=== PATIENT | female | born 1945 | race Caucasian/White ===

== ENCOUNTER → 2018-04-15 06:41 | Outpatient (CLI) | payer MEDICARE, SELFPAY ==
--- NOTE | 2018-04-15 06:50 | DI.CT.S_ITS ---
PROCEDURE: CT HEAD/BRAIN WO CON INDICATIONS: MEMORY LOSS TECHNIQUE: Noncontrast 4.5 mm thick angled axial sections acquired from the foramen magnum to the vertex, with coronal and sagittal reformats. For radiation dose reduction, the following was used: automated exposure control, adjustment of mA and/or kV according to patient size. COMPARISON: [facility], CT, HEAD WITHOUT CONTRAST, 03/13/2011, 9:59. FINDINGS: Image quality: Excellent. CSF spaces: Basal cisterns are patent. No extra-axial fluid collections. The ventricles are symmetric in size and shape. Brain: No intracranial bleeds. 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 There is cerebral volume loss for age, with resultant ventricular and sulcal prominence. There are periventricular and deep white matter chronic small vessel ischemic changes. There is intracranial internal carotid artery atherosclerosis. Skull and face: Calvarium and visualized facial bones appear intact, without suspicious lesions. Sinuses: Visualized sinuses and mastoids are clear. IMPRESSION: No acute intracranial abnormality. 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 Dictated by: Yisel Sin M.D. on 04/15/2018 at 8:44 Approved by: Yisel Sin M.D. on 04/15/2018 at 8:46
[2018-04-15 09:39] LABS: Hematocrit 41.6 % (36-46); Mean Corpuscular HGB Conc 33.6 % (30-36); Mean Corpuscular Hemoglobin 29.8 PG (26-34); Mean Corpuscular Volume 88.6 fL (80-100); Platelet Count 243 X10^3/uL (150-400); Red Cell Distribution Width 13.8 % (11.6-14.8); White Blood Cell Count 8.3 X10^3/uL (4.5-11.0)
[2018-04-15 09:55] LABS: Hemoglobin A1C% w Est Avg Glu 5.6 % (4.0-6.0)
[2018-04-15 10:29] LABS: Alanine Aminotransferase 24 IU/L (9-52); Albumin 4.3 g/dL (3.5-5.0); Albumin Globulin Ratio 1.3 (1.0-2.8); Alkaline Phosphatase 56 U/L (38-126); Aspartate Aminotransferase 28 IU/L (14-36); BUN Creatinine Ratio 23.8 (6-22); Bilirubin Total 0.6 mg/dL (0.2-1.3); Blood Urea Nitrogen 19 mg/dL (7-17); Calcium 9.9 mg/dL (8.4-10.2); Carbon Dioxide 29 mmol/L (22-32); Chloride 100 mmol/L (98-107); Cholesterol 218 mg/dL (140-199); Estimated Glomerular Filt Rate > 60.0 mL/min (>60); Globulin 3.4 g/dL (1.7-4.1); Glucose 84 mg/dL (80-110); HDL Cholesterol 69 mg/dL (40-60); HEMOLYSIS < 15 (0-50); LDL Cholesterol Calculated 132 mg/dL (<100); Potassium 5.3 mmol/L (3.4-5.1); Sodium 141 mmol/L (137-145); Total Protein 7.7 g/dL (6.3-8.2); Triglycerides 85 mg/dL (35-150)
[2018-04-15 10:45] LABS: Thyroid Stimulating Hormone 2.36 uIU/mL (0.47-4.68)
== END ==
DX: R41.3 Other amnesia (principal); Z13.220 Encounter for screening for lipoid disorders; Z13.29 Encounter for screening for other suspected endocrine disorder; Z13.228 Encounter for screening for other metabolic disorders; Z13.0 Encounter for screening for diseases of the blood and blood-forming organs and certain disorders involving the immune mechanism
CPT/HCPCS: 36415; 70450; 80053; 80061; 83036; 84443; 85027

== ENCOUNTER 2025-01-02 11:30 | Emergency (ER) | payer MEDICARE, SELFPAY ==
[2025-01-02] VITALS (7 sets, daily range): BP systolic 115–167; BP diastolic 59–75; PULSE 44–56; RESP 16–24; TEMP 36.7; O2SAT 94–99; BMI 27.1
--- NOTE | 2025-01-02 12:08 | DI.RAD.S_ITS ---
PROCEDURE: XR HAND LT MIN 3V INDICATIONS: hand pain TECHNIQUE: 3 views of the hand(s) acquired. COMPARISON: None. FINDINGS: Bones: No fractures or dislocations. Carpal bones are normally aligned. No suspicious bony lesions. Soft tissues: No suspicious soft tissue calcifications. IMPRESSION: No acute bony abnormality. Osteopenia and CMC arthritic changes Approved by: Sanford Roblero M.D. on 01/02/2025 at 12:26
[2025-01-02 12:35] LABS: Add Manual Diff / Slide Review NO; Basophils Absolute Auto 100 /uL (0-100); Basophils Percent Auto 0.8 % (0-2); Eosinophils Absolute Auto 200 /uL (0-450); Eosinophils Percent Auto 2.7 % (2-4); Hematocrit 41.7 % (36-46); Hemoglobin 13.8 g/dL (12.0-16.0); Lymphocytes Absolute Auto 1700 /uL (1100-4500); Lymphocytes Percent Auto 19.7 % (25-40); Mean Corpuscular HGB Conc 33.1 % (30-36); Mean Corpuscular Hemoglobin 30.6 PG (26-34); Mean Corpuscular Volume 92.4 fL (80-100); Monocytes Absolute Auto 800 /uL (0-900); Monocytes Percent Auto 9.2 % (3-14); Neutrophils Absolute Auto 6000 /uL (1500-7000); Neutrophils Percent Auto 67.6 % (50-75); Platelet Count 200 X10^3/uL (150-400); Red Blood Cell Count 4.51 X10^6/uL (4.0-5.2); Red Cell Distribution Width 13.8 % (11.6-14.8); White Blood Cell Count 8.8 X10^3/uL (4.5-11.0)
[2025-01-02 12:51] LABS: Alanine Aminotransferase 24 IU/L (<35); Albumin 4.5 g/dL (3.5-5.0); Albumin Globulin Ratio 1.4 (1.0-2.8); Alkaline Phosphatase 57 U/L (38-126); Aspartate Aminotransferase 40 IU/L (14-36); BUN Creatinine Ratio 17.9 (6-22); Bilirubin Total 0.5 mg/dL (0.2-1.3); Blood Urea Nitrogen 17 mg/dL (7-17); Calcium 9.5 mg/dL (8.4-10.2); Carbon Dioxide 23 mmol/L (22-32); Chloride 105 mmol/L (98-107); Estimated Glomerular Filt Rate > 60 mL/min (>60); Globulin 3.2 g/dL (1.7-4.1); Glucose 87 mg/dL (80-110); HEMOLYSIS 25 (0-50); Potassium 4.3 mmol/L (3.4-5.1); Sodium 139 mmol/L (137-145); Total Protein 7.7 g/dL (6.3-8.2)
--- NOTE | 2025-01-02 13:14 | ED_ITS ---
HPI - Extremity Problem General Chief complaint: Extremity Injury, Upper Stated complaint: left hand/arm injury Time Seen by Provider: 01/02/25 12:06 Source: patient Mode of arrival: Ambulatory History of Present Illness HPI Narrative: This is a 79-year-old woman with no pertinent past medical history complaining of left upper extremity problems. Reports that it started with swelling and pain on the flexor surface of her left small finger. She felt like she might have a splinter although she does not recall having had a splinter. Couple of days ago she opened the area up with a needle and got a small amount of pus out. She subsequently had increased swelling and pain in the finger and then redness running up her left arm. She was seen urgent care yesterday and started on Bactrim. She reports that the redness has progressed significantly since then she is taken 2 doses of Bactrim at this point. He has not had any fevers or chills. No immunosuppression. Does reported diagnosis of rheumatoid arthritis. Does not recall when her last tetanus booster was. Additionally, I see that she has cephalexin listed as an allergy but she reports she believes she may have had some nausea and dizziness when taking it. No history of severe reaction and not really consistent with a true allergy. Related Data Previous Rx's Medication Instructions Recorded cephalexin 500 mg capsule 500 mg PO QID 10 days #40 caps 01/02/25 Allergies Allergy/AdvReac Type Severity Reaction Status Date / Time INGREDIENT: NKA - NO KNOWN Allergy Unknown Uncoded 07/24/18 09:15 ALLERGIES Cephalexin AdvReac Unknown Uncoded 07/24/18 09:15 Meperidine AdvReac Unknown Uncoded 07/24/18 09:15 Prednisone AdvReac Unknown Uncoded 07/24/18 09:15 Patient History Medical History (Updated 01/02/25 @ 13:54 by Mike Fleming MD) APOE*3/*4 genotype Cognitive impairment Environmental allergies Gastroparesis Transient ischemic attack (~2011) Knee pain Scoliosis Osteopenia (~2015) Pelvis fracture (~1975) Foot pain (~2016) Arabic measles (~1968) Chicken pox (~1949) Tinnitus Hearing loss Surgical History (Updated 06/06/18 @ 21:47 by Lorraine Purdy) Anesthesia History of toe surgery (~1989) History of ankle surgery (~1989) History of esophagogastroduodenoscopy (EGD) History of colonoscopy History of cholecystectomy (~2010) History of tubal ligation (~1980) History of tonsillectomy and adenoidectomy (~1950) Family History (Updated 06/06/18 @ 21:53 by Lorraine Purdy) Father No problems noted. Mother Macular degeneration Impaired fasting glucose Hypertension Heart disease Brother Polio Diverticular disease Social History marital status: number of children: 4 household members: spouse lives independently: Yes caregiver/support person: No housing: house pets and animals: No education level: college occupational status: unemployed and other sheila/zoroastrian: [employer] travel history: over 6 months ago ([place], [place]) leisure activities: exercise, art ([place]), reading and other ([place]) Smoking Status: Never smoker Tobacco: How many years used: 0 quit status: quit date established (Never Started) second hand exposure: No alcohol intake: never substance use type: does not use Smoking Status: Never smoker Exam Initial Vital Signs Initial Vital Signs: Vital Signs Temperature 98.1 F 01/02/25 11:34 Pulse Rate 56 L 01/02/25 11:34 Respiratory Rate 18 01/02/25 11:34 Blood Pressure 167/75 H 01/02/25 11:34 Pulse Oximetry 98 01/02/25 11:34 Oxygen Delivery Method Room Air 01/02/25 11:34 Vitals remarkable only for mild systolic hypertension Const Other: Well-appearing Neck Other: Neck is supple Resp Other: Normal respiratory effort lungs are clear Cardio Other: Regular rhythm rate no murmur Skin Other: Warm and dry Extrem Other: There is a small wound over the flexor aspect of proximal phalanx left small finger. He has no palpable abscess in this area she has some redness and swelling of the hand, her tendons are nontender there is lymphangitic streaking running up to approximately the mid aspect of the humerus. Finger and wrist have full active range of motion, she does have some mild axillary adenopathy. Course Orders Ordered: ED Orders 01/02/25 12:08 XR hand LT min 3V Stat 01/02/25 12:23 CBC Auto Diff [Complete Blood Count AUTO DIFF] Stat CMP [Comprehensive Metabolic Panel] Stat Discontinued Medications Diphtheria/Tetanus/Acell Pertussis (Tet,Diph,Pertuss(Acell),Vac/Pf 0.5 Ml Syringe) 0.5 ml IM .ONCE ONE Stop: 01/02/25 13:31 Last Admin: 01/02/25 13:32 Dose: 0.5 ml Documented By: EMMY Ceftriaxone Sodium 2,000 mg/ (Sodium Chloride) 100 mls @ 200 mls/hr IV NOW ONE Stop: 01/02/25 13:15 Last Admin: 01/02/25 13:21 Dose: 200 mls/hr Documented By: EMMY Vital Signs Vital signs: Vital Signs - 8 hr 01/02/25 11:34 01/02/25 13:41 01/02/25 13:42 Temperature 98.1 F Pulse Rate 56 L 47 L Respiratory Rate 18 24 Blood Pressure 167/75 H 150/70 H Pulse Oximetry 98 99 Oxygen Delivery Method Room Air 01/02/25 13:42 Temperature Pulse Rate 49 L Respiratory Rate 22 Blood Pressure Pulse Oximetry 98 Oxygen Delivery Method MDM - Extremity (Nontraumatic) Lab Data Lab results narrative: No leukocytosis CBC is otherwise unremarkable, CMP is unremarkable 01/02/25 12:23 01/02/25 12:23 Labs: Lab Results 01/02/25 Range/Units 12:23 WBC 8.8 (4.5-11.0) X10^3/uL RBC 4.51 (4.0-5.2) X10^6/uL Hgb 13.8 (12.0-16.0) g/dL Hct 41.7 (36-46) % MCV 92.4 (80-100) fL MCH 30.6 (26-34) PG MCHC 33.1 (30-36) % RDW 13.8 (11.6-14.8) % Plt Count 200 (150-400) X10^3/uL Neut % (Auto) 67.6 (50-75) % Lymph % (Auto) 19.7 L (25-40) % Dundy % (Auto) 9.2 (3-14) % Eos % (Auto) 2.7 (2-4) % Baso % (Auto) 0.8 (0-2) % Neut # (Auto) 6000 (5734-4236) /uL Lymph # (Auto) 1700 (7936-3486) /uL Dundy # (Auto) 800 (0-900) /uL Eos # (Auto) 200 (0-450) /uL Baso # (Auto) 100 (0-100) /uL Sodium 139 (137-145) mmol/L Potassium 4.3 (3.4-5.1) mmol/L Chloride 105 (98-107) mmol/L Carbon Dioxide 23 (22-32) mmol/L BUN 17 (7-17) mg/dL Creatinine 0.95 (0.52-1.04) mg/dL Estimated GFR > 60 (>60) mL/min BUN/Creatinine Ratio 17.9 (6-22) Glucose 87 (80-110) mg/dL Calcium 9.5 (8.4-10.2) mg/dL Total Bilirubin 0.5 (0.2-1.3) mg/dL AST 40 H (14-36) IU/L ALT 24 (<35) IU/L Alkaline Phosphatase 57 (38-126) U/L Total Protein 7.7 (6.3-8.2) g/dL Albumin 4.5 (3.5-5.0) g/dL Globulin 3.2 (1.7-4.1) g/dL Albumin/Globulin Ratio 1.4 (1.0-2.8) Imaging Data Extremity x-ray #1: My Impression: Independently reviewed left hand x-ray, no bony abnormality no foreign body Radiologist's Impression: Radiology report reviewed no acute findings reported Discharge Plan Departure Patient Disposition: Home Clinical Impression: Cellulitis Qualifiers: Site of cellulitis: extremity Site of cellulitis of extremity: upper extremity Laterality: left Qualified Code(s): L03.114 - Cellulitis of left upper limb Activity Restrictions/Additional Instructions: Today, we are treating you for an infection in your left hand and arm. I think we can keep him out of the hospital but I want to make some changes in your care. Keep taking the previously prescribed trimethoprim sulfa and I am good as cephalexin. As we discussed, you experienced nausea and lightheadedness associated with that medication on 1 occasion previously, I am not sure that that is really an allergy and you are tolerating that class of medications fine today. I think it is reasonable to rechallenge you with that medication. Give us a call and we can change it if you find that you are not able to tolerate cephalexin. The other thing that I want you to do is to keep your arm elevated above the level of the heart as much as possible. Keep your ring off until this infection resolves so that your finger does not swell up and cut off the blood supply past the ring. We have marked the extent of the redness. If you are having significant increase so more than 1 or 2 cm in the redness or if you are having shaking chills or fevers or severe pain in your arm or hand return to the emergency department immediately. I understand that you are seeing your primary care provider tomorrow. I would make sure that you discuss this situation with them. It is safe to use acetaminophen and or ibuprofen as needed at usual [id number] doses for pain if needed. Prescriptions: New cephalexin 500 mg capsule 500 mg PO QID 10 Days Qty: 40 0RF Stand Alone Forms: Patient Portal/API/Survey
[2025-01-02] MEDS: cefTRIAXone 2,000 MG in SODIUM CHLORIDE 0.9% 100 ML 200 MG IV (13:21)
--- NOTE | 2025-01-02 13:43 | PC.NURSE ---
patient started on abx. pt stated allergy to cephalexin. nausea and vertigo. pt allergy hx conflicted with order. concerns for reaction addressed with provider. provider okayyed order. will continue to monitor pt with vital signs. pt instructed to alert nurse for new s/sx of allergic reaction.
--- NOTE | 2025-01-02 14:11 | PC.NURSE ---
pt IV abx finished. no reaction to note. airway clear, no SOB, wheezes. no nausea or vertigo at this time.
[2025-01-02] MEDS: TET,DIPH,PERTUSS(ACELL),VAC/PF 0.5 ML SYRINGE IM (14:18)
--- NOTE | 2025-01-02 14:21 | PC.NURSE ---
Patient left arm marked with skin marker.
== END 2025-01-02 15:31 | disposition home or self-care (01) ==
PROVIDERS: Emergency Provider Emergency Medicine
DX: L03.114 Cellulitis of left upper limb (principal); Z23 Encounter for immunization
CPT/HCPCS: 36415; 73130; 80053; 85025; 90471; 96365; 99284; 90715; J0696